=== PATIENT | male | born 1990 | race Caucasian/White ===

== ENCOUNTER 2019-11-30 18:20 | Emergency (ER) | payer OTHER ==
[~2019-11-30] VITALS: Ht 180.3 cm; Wt 100.3 kg
[2019-11-30 18:21] VITALS: BP 133/73
[2019-11-30] MEDS ORDERED: IBUPROFEN 400 (18:28)
[2019-11-30] MEDS ORDERED: AUGM875T28 PO (19:15)
[2019-12-02] MEDS ORDERED: CEFAD50CA PO (16:26)
== END 2019-11-30 19:20 | disposition home or self-care (01) ==
LOC: M ED 18:20
DX: L03.211 Cellulitis of face (principal); R68.84 Jaw pain; F17.218 Nicotine dependence, cigarettes, with other nicotine-induced disorders

== ENCOUNTER 2019-12-02 12:10 | Emergency (ER) | payer OTHER ==
[~2019-12-02] VITALS: Ht 180.3 cm; Wt 100.6 kg
[~2019-12-02 12:10] MED LIST: AUGM875T28 PO; IBUPROFEN 400
[2019-12-02] MEDS ORDERED: TETRACAINE 0.5% OPHTH SOLN 4ML OS ONE (13:00)
[2019-12-02] MEDS ORDERED: FLUORESCEIN OPHTH 1 MG STRIP OS ONE (13:00)
[2019-12-02 13:02] LABS: BASO # 0.1 10^3/uL (0.0-0.2); BASO % 1.6 % (0.0-1.0); EOS # 0.2 10^3/uL (0.0-0.5); EOS % 3.6 % (0.0-3.0); HEMATOCRIT 46.5 % (42.0-52.0); HEMOGLOBIN 15.3 g/dl (13.5-17.5); LYMPH # 1.4 10^3/uL (1.5-5.0); LYMPH % 21.7 % (24.0-44.0); MEAN CORPUSCULAR HEMOGLOBIN 28.8 pg (27.0-33.0); MEAN CORPUSCULAR HGB CONC 32.9 g/dl (32.0-36.5); MEAN CORPUSCULAR VOLUME 87.6 fl (80.0-96.0); MONO # 0.7 10^3/uL (0.0-0.8); MONO % 10.1 % (0.0-5.0); NEUTROPHILS % 62.1 % (36.0-66.0); RED BLOOD COUNT 5.31 10^6/uL (4.30-6.10); WHITE BLOOD COUNT 6.5 10^3/uL (4.0-10.0)
[2019-12-02 13:23] LABS: PLATELET COUNT, AUTOMATED 19 10^3/uL (150-450)
[2019-12-02 13:24] LABS: C REACTIVE PROTEIN QUANTITATIV 3.27 MG/DL (0.00-0.30)
[2019-12-02 13:47] LABS: ERYTHROCYTE SEDIMENTATION RATE 8 mm/hr (0-15)
[2019-12-02 14:11] LABS: ALBUMIN 3.8 GM/DL (3.2-5.2); BILIRUBIN,DIRECT 0.2 MG/DL (0.0-0.2); BILIRUBIN,TOTAL 0.7 MG/DL (0.2-1.0); TOTAL PROTEIN 7.3 GM/DL (6.4-8.2)
[2019-12-02 14:19] LABS: FOLATE 15.5 NG/ML (>5.4)
--- NOTE | 2019-12-02 15:32 | REP ---
LEFT UPPER QUADRANT ULTRASOUND: Real-time sonographic evaluation of the left upper quadrant performed. The spleen is normal in size with a length of 12 cm. No intrinsic abnormality is seen. The left kidney is normal in size and echotexture 12.7 x 6.9 x 6.5 cm. There is no hydronephrosis. No free fluid is seen. IMPRESSION: Negative left upper quadrant ultrasound. No evidence of splenomegaly. Electronically Signed by Kee Rivas MD 12/02/2019 07:55 P
[2019-12-02 16:18] VITALS: BP 138/80
[2019-12-02] MEDS ORDERED: CEFA500C2 PO (16:26)
--- NOTE | 2019-12-02 16:39 | MEDONCTEEN ---
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 The drug (hapten) bines covalence lead to platelet membrane resulting in a drug specific immune response. This can be tested serologically. Recommendations Discontinue Augmentin May proceed with cephalosporin treatment such as Duricef 500 mg twice a day Recommend repeat CBC tomorrow and testing for hapten-dependent antibodies tomorrow. If platelet count is worse, recommend inpatient admission and would proceed with dexamethasone 40 mg daily 4 days If Platelet count stable or improved, we will plan on outpatient visit with date to be determined in the to the cancer center depending on blood counts Patient's platelet count is high enough that there is no significant increased risk of bleeding at this particular juncture Patient has an active infection and we wished to avoid exacerbating infection No role for inpatient admission at this juncture No clear role for treatment at this time Impression Drug-induced pancytopenia (hapten effect) from Augmentin Plan Recommend CBC and hapten-dependent antibodies testing tomorrow Plan pending blood counts Patient will have to be seen in hematology tomorrow or next week pending workup tomorrow COBRY ACEVEDO MD Dec 02, 2019 16:39
== END 2019-12-02 16:32 | disposition home or self-care (01) ==
LOC: M ED 12:10
DX: D61.811 Other drug-induced pancytopenia (principal); L03.211 Cellulitis of face; Z98.890 Other specified postprocedural states

== ENCOUNTER 2019-12-03 12:27 | Emergency (ER) | payer OTHER ==
[~2019-12-03] VITALS: Ht 180.3 cm; Wt 100.0 kg
[2019-12-03 12:27] VITALS: BP 144/80
[~2019-12-03 12:27] MED LIST changes: +CEFAD50CA PO
[2019-12-03 13:12] LABS: BASO # 0.1 10^3/uL (0.0-0.2); BASO % 1.3 % (0.0-1.0); EOS # 0.2 10^3/uL (0.0-0.5); EOS % 3.8 % (0.0-3.0); HEMATOCRIT 49.2 % (42.0-52.0); HEMOGLOBIN 16.1 g/dl (13.5-17.5); LYMPH # 1.9 10^3/uL (1.5-5.0); LYMPH % 30.1 % (24.0-44.0); MEAN CORPUSCULAR HEMOGLOBIN 28.5 pg (27.0-33.0); MEAN CORPUSCULAR HGB CONC 32.7 g/dl (32.0-36.5); MEAN CORPUSCULAR VOLUME 87.2 fl (80.0-96.0); MONO # 0.4 10^3/uL (0.0-0.8); MONO % 6.1 % (0.0-5.0); NEUTROPHILS # 3.6 10^3/uL (1.5-8.5); NEUTROPHILS % 58.1 % (36.0-66.0); RED BLOOD COUNT 5.64 10^6/uL (4.30-6.10); WHITE BLOOD COUNT 6.3 10^3/uL (4.0-10.0)
[2019-12-03 13:14] LABS: PLATELET COUNT, AUTOMATED 43 10^3/uL (150-450)
== END 2019-12-03 13:40 | disposition home or self-care (01) ==
LOC: M ED 12:27
DX: D69.59 Other secondary thrombocytopenia (principal); T36.0X5A Adverse effect of penicillins, initial encounter